=== PATIENT | male | born 1970 | race Hispanic/Latino ===

== ENCOUNTER → 2020-05-20 | Outpatient (CLI) | payer OTHER | LOC: MRI 08:01 | PROVIDERS: ATTEND Specialist | DX: S83.222A Peripheral tear of medial meniscus, current injury, left knee, initial encounter (principal); S83.262A Peripheral tear of lateral meniscus, current injury, left knee, initial encounter ==

== ENCOUNTER → 2020-05-28 | Day surgery (SDC) | payer OTHER ==
[2020-05-23 10:50] LABS: ANION GAP 12.9 mmol/L (8-16); BLOOD UREA NITROGEN 20 mg/dL (7-26); BUN/CREATININE RATIO 26 (6-25); CARBON DIOXIDE 29 mmol/L (22-29); CHLORIDE 102 mmol/L (98-107); CREATININE, SERUM 0.76 mg/dL (0.72-1.25); EST GLOMERULAR FILTRATION RATE > 60 ML/MIN (60-); GLUCOSE 181 mg/dL (74-118); POTASSIUM 3.9 mmol/L (3.5-5.1); SODIUM 140 mmol/L (136-145)
[~2020-05-28] MED LIST: BUPIVACAINE HCL 0.5% INJ 30 ML VIAL INJ ONE; CEFAZOLIN SOD 1 GM/NS 50ML 100 ML IV ONE; DEXAMETHASONE SOD PHOS INJ 4 MG/ML VIAL ONE; FENTANYL CITRATE/PF 100MCG/2 ML INJ ONE; FLOMAX0.4 MG PO; GLUCOTROL XL10 MG PO; KETOROLAC TROMETHAMINE 30 MG/ML VIAL ONE; LIDOCAINE HCL 2% LOCAL INJ 5 ML SDV VIAL INJ ONE; LIPITOR10 MG PO; METFORMIN HCL500 MG PO; METOPROLOL TAR100 MG PO; MIDAZOLAM HCL 2 MG/2 ML VIAL ONE; OLMESARTAN-HCT1 EAC2 PO; ONDANSETRON HCL INJ 2MG/ML 2ML 2 MG/ML VIAL ONE; PROPOFOL IV EMULSION 10 MG/ML 20 ML VIAL ONE; SEVOFLURANE INHAL SOLN 250 ML PEN BTL ONE
[2020-05-28 10:03] VITALS: BP 124/80
== END | disposition home or self-care (01) ==
LOC: OR 06:21
PROVIDERS: ATTEND Specialist
DX: S83.222A Peripheral tear of medial meniscus, current injury, left knee, initial encounter (principal); S83.262A Peripheral tear of lateral meniscus, current injury, left knee, initial encounter; M17.12 Unilateral primary osteoarthritis, left knee; M67.52 Plica syndrome, left knee; M22.42 Chondromalacia patellae, left knee; I10 Essential (primary) hypertension; E11.9 Type 2 diabetes mellitus without complications; X58.XXXA Exposure to other specified factors, initial encounter; Z01.810 Encounter for preprocedural cardiovascular examination; Z01.812 Encounter for preprocedural laboratory examination; Z79.84 Long term (current) use of oral hypoglycemic drugs; Z79.82 Long term (current) use of aspirin; Z86.16 Personal history of COVID-19
CPT/HCPCS: 29881; 36415 ×2; 80048; 82948; 93005; J0690; J1100; J1885; J2001; J2250; J2405; J2704; J3010